=== PATIENT | female | born 1980 | race Two or more races ===

== ENCOUNTER 2017-05-12 20:47 | Inpatient (IN) | payer OTHER ==
[~2017-05-12] VITALS: Ht 167.6 cm; Wt 83.3 kg
[2017-05-12] MEDS ORDERED: LIDOCAINE 1%, 20ML ONE (20:58)
[2017-05-12] MEDS ORDERED: OXYTOCIN 30U/ 0.9% NaCL 500ML 500 ML ONE (20:59)
[2017-05-12] MEDS ORDERED: MISOPROSTOL 200 MCG TABLET ONE (20:59)
[2017-05-12] MEDS ORDERED: NEWBORN KIT ONE (20:59)
[2017-05-12] MEDS ORDERED: OXYTOCIN 30U/ 0.9% NaCL 500ML 500 ML IV PRN (21:06)
[2017-05-12] MEDS ORDERED: FENTANYL PF 100 MCG/2ML ONE (21:28)
[2017-05-12] MEDS ORDERED: FENTANYL PF 100 MCG/2ML IV PRN (21:30)
[2017-05-12] MEDS ORDERED: ONDANSETRON 2MG/ML, 2ML IVPush PRN (21:30)
[2017-05-12] MEDS ORDERED: PLEASE ENTER HEIGHT AND WEIGHT MC SCH (21:30)
[2017-05-12] MEDS ORDERED: TERBUTALINE 1 MG/ML, 1ML IVPush PRN ×2 (21:30)
[2017-05-12] MEDS ORDERED: PLEASE ENTER ALLERGIES MC SCH ×2 (21:30)
[2017-05-12 22:35] LABS: ASPARTATE AMINO TRANSFERASE 13 U/L (15-37); BLOOD UREA NITROGEN 5 mg/dL (7-18)
[2017-05-13] MEDS ORDERED: FENTANYL PF 100 MCG/2ML ONE (00:31)
[2017-05-13] MEDS: OXYTOCIN 30U/ 0.9% NaCL 500ML 500 ML IV SCH ×2 (00:47→10:47)
[2017-05-13] MEDS: FENTANYL PF 100 MCG/2ML IVPush PRN ×2 (00:50→03:16)
[2017-05-13] MEDS ORDERED: CALCIUM CARBONATE 500 MG TAB.CHEW PO PRN (01:00)
[2017-05-13] MEDS ORDERED: CARBOPROST TROMETHAMINE 250 MCG/ML, 1ML IM PRN (01:00)
[2017-05-13] MEDS ORDERED: MISOPROSTOL 200 MCG TABLET PR PRN (01:00)
[2017-05-13] MEDS ORDERED: METHYLERGONOVINE 0.2 MG/ML IM PRN (01:00)
[2017-05-13] MEDS ORDERED: ONDANSETRON 2MG/ML, 2ML IV PRN (01:00)
[2017-05-13] MEDS ORDERED: HYDROcodone/APAP 5/325 TABLET ONE (01:06)
[2017-05-13] MEDS ORDERED: IBUPROFEN 600 MG TABLET ONE (01:06)
[2017-05-13] MEDS: IBUPROFEN 600 MG TABLET PO PRN ×4 (01:13→23:13)
[2017-05-13] MEDS: HYDROcodone/APAP 5/325 TABLET PO PRN ×4 (01:13→23:13)
[2017-05-13 03:00] VITALS: BP 127/84
[2017-05-13] MEDS: DOCUSATE 100 MG CAPSULE PO PRN ×2 (08:04→23:13)
[2017-05-13 08:30] VITALS: BP 113/75
[2017-05-13 08:57] LABS: DIFF TOTAL CELLS COUNTED 100 CELL DIFF
[2017-05-13 08:58] LABS: VERIFY COUNTS? YES
[2017-05-13] MEDS ORDERED: PRENATAL VIT/IRON/FA 1 EACH TABLET PO SCH (09:00)
[2017-05-13 09:02] LABS: MICROCYTOSIS 1+; POLYCHROMASIA 1+
[2017-05-13 09:04] LABS: ANISOCYTOSIS 2+
[2017-05-13 20:30] VITALS: BP 131/88
[2017-05-14] MEDS: HYDROcodone/APAP 5/325 TABLET PO PRN ×2 (05:26→11:31)
[2017-05-14] MEDS: IBUPROFEN 600 MG TABLET PO PRN ×2 (05:26→11:31)
[2017-05-14 07:35] VITALS: BP 122/74
[2017-05-14] MEDS ORDERED: IBUP-1222 PO (10:10)
[2017-05-14] MEDS ORDERED: HYDR-3240 PO (10:10)
[2017-05-14] MEDS ORDERED: DOCU-30 PO (10:11)
[2017-05-14] MEDS ORDERED: DIPH,PERTUSS(ACELL),TET VAC/PF NC IM-VACC ONE ×2 (11:15→12:00)
[2017-05-14] MEDS: DOCUSATE 100 MG CAPSULE PO PRN (11:31)
== END 2017-05-14 13:00 | disposition home or self-care (01) | DRG 775 ==
LOC: LDOP 20:47 → LDIP 21:00 → 2NW 05-13 02:30
PROVIDERS: ADMIT Student in an Organized Health Care Education/Training Program; ATTEND Student in an Organized Health Care Education/Training Program
PROC: 10E0XZZ Delivery of Products of Conception, External Approach (ICD-10-PCS; principal; 2017-05-13)
DX: O66.0 Obstructed labor due to shoulder dystocia (principal); O69.81X0 Labor and delivery complicated by cord around neck, without compression, not applicable or unspecified; O36.63X0 Maternal care for excessive fetal growth, third trimester, not applicable or unspecified; Z37.0 Single live birth; Z3A.40 40 weeks gestation of pregnancy; Z23 Encounter for immunization
CPT/HCPCS: 36415; 80053; 82803; 85025; 86850; 86900; 90715; J3010